=== PATIENT | male | born 1940 | race Caucasian/White ===

== ENCOUNTER 2021-09-29 13:05 | Inpatient (IN) ==
[2021-09-29 13:58] LABS: Basophils % 0.5 %; Eosinophils # 0.2 K/mcL (0.0-0.6); Eosinophils % 2.7 %; Hematocrit 34.9 % (37.5-50.1); Hemoglobin 11.6 g/dL (12.9-16.9); Immature Granulocytes % 0.3 % (0-4); Lymphocytes # 1.7 K/mcL (0.6-4.6); Lymphocytes % 23.2 %; Mean Corpuscular HGB Conc 33.2 g/dL (31.6-35.5); Mean Corpuscular Hemoglobin 31.4 pg (28.0-33.3); Mean Corpuscular Volume 94.6 fL (83.0-100.0); Mean Platelet Volume 9.1 fL (9.4-12.4); Monocytes # 0.6 K/mcL (0.0-1.3); Neutrophils # 4.8 K/mcL (1.6-8.9); Platelet Count 277 K/mcL (140-400); Red Blood Count 3.69 M/mcL (4.19-5.50); Red Cell Distribution Width 13.1 % (11.5-14.5); Segmented Neutrophils % 65.3 %; White Blood Count 7.3 K/mcL (4.3-11.1)
[2021-09-29 14:18] LABS: BUN/Creatinine Ratio 16 (6-26); Blood Urea Nitrogen 27 mg/dL (8-23); Calcium 8.9 mg/dL (8.6-10.3); Carbon Dioxide 26 mEq/L (23-29); Chloride 106 mEq/L (98-107); Glucose 135 mg/dL (70-105); Osmolality,Calculated 297 (280-300); Sodium 140 mEq/L (136-145); Troponin I < 0.03 ng/mL (< 0.04); eGFR For African Americans 49 (> 60); eGFR For Non-African Americans 40 (> 60)
[2021-09-29] MEDS ORDERED: *HR* Labetalol 20 MG/4 ML SYRINGE IVP PRN (17:03)
[2021-09-29] MEDS ORDERED: Perflutren Lipid Microsphere 1.3 ML in 0.9 % Sodium Chloride 8.7 ML IVP PRN (20:08)
[2021-09-29] MEDS ORDERED: Dextrose Gel 15 GM/37.5 ML TUBE PO PRN ×2 (21:59)
[2021-09-29] MEDS ORDERED: *HR* Dextrose 50 % in Water (Syg) 50 ML SYRINGE IVP PRN (21:59)
[2021-09-29] MEDS ORDERED: D5% in Water 1,000 ML IVC PRN (21:59)
[2021-09-29] MEDS: Metoprolol XL (24 HR) Succ 25 MG TAB.ER.24H PO SCH (23:00)
[2021-09-29] MEDS: Pregabalin 25 MG CAPSULE PO SCH (23:45)
[2021-09-30] MEDS: *HR* Heparin 5,000 UNIT/ML VIAL SQ SCH ×3 (05:15→21:01)
[2021-09-30 06:47] LABS: Hematocrit 31.7 % (37.5-50.1); Hemoglobin 10.8 g/dL (12.9-16.9); Mean Corpuscular HGB Conc 34.1 g/dL (31.6-35.5); Mean Corpuscular Volume 93.8 fL (83.0-100.0); Mean Platelet Volume 9.3 fL (9.4-12.4); Platelet Count 235 K/mcL (140-400); Red Blood Count 3.38 M/mcL (4.19-5.50); Red Cell Distribution Width 13.1 % (11.5-14.5); White Blood Count 7.3 K/mcL (4.3-11.1)
[2021-09-30 07:07] LABS: Albumin 3.9 g/dL (3.5-5.7); Albumin/Globulin Ratio 1.8 (1.1-2.2); Bilirubin,Total 0.7 mg/dL (0.3-1.0); Calcium 8.6 mg/dL (8.6-10.3); Chol/HDL Ratio 4.2 (0-4.9); Globulin 2.2 g/dL (2.4-3.5); Potassium 4.1 mEq/L (3.5-5.1); Total Protein 6.1 g/dL (6.4-8.9)
[2021-09-30 07:32] LABS: Estimated Average Glucose 148 mg/dl; Hemoglobin A1C 6.8 %
[2021-09-30] MEDS ORDERED: Gadolinium Contrast Agent (WT Based) IV PRN (08:19)
[2021-09-30] MEDS: Aspirin Enteric Coated 81 MG Tablet PO SCH (09:04)
[2021-09-30] MEDS: Valsartan 80 MG TABLET PO SCH (09:04)
[2021-09-30] MEDS: Pregabalin 25 MG CAPSULE PO SCH ×2 (09:04→21:01)
[2021-09-30] MEDS: Insulin LISPRO 300 UNITS/3 ML VIAL SUBQ SCH ×3 (09:04→16:31)
[2021-09-30] MEDS: hydroCHLOROthiazide 25 MG TABLET PO SCH (09:04)
[2021-09-30] MEDS: Metoprolol XL (24 HR) Succ 25 MG TAB.ER.24H PO SCH (20:58)
[2021-10-01] MEDS: *HR* Heparin 5,000 UNIT/ML VIAL SQ SCH (05:55)
[2021-10-01] MEDS: hydroCHLOROthiazide 25 MG TABLET PO SCH (09:22)
[2021-10-01] MEDS: Valsartan 80 MG TABLET PO SCH (09:22)
[2021-10-01] MEDS: Insulin LISPRO 300 UNITS/3 ML VIAL SUBQ SCH ×3 (09:22→16:51)
[2021-10-01] MEDS: Pregabalin 25 MG CAPSULE PO SCH ×2 (09:23→20:40)
[2021-10-01] MEDS: Aspirin Enteric Coated 81 MG Tablet PO SCH (09:23)
[2021-10-01] MEDS ORDERED: Perflutren Lipid Microsphere 1.3 ML in 0.9 % Sodium Chloride 8.7 ML IVP PRN (09:36)
[2021-10-01] MEDS ORDERED: *HR* Heparin 5,000 UNIT/ML VIAL IVP PRN ×2 (12:57)
[2021-10-01] MEDS ORDERED: *HR* Heparin 5,000 UNIT/ML VIAL IVP ONE (12:57)
[2021-10-01 13:16] LABS: Hematocrit 33.9 % (37.5-50.1); Hemoglobin 11.5 g/dL (12.9-16.9); Mean Corpuscular HGB Conc 33.9 g/dL (31.6-35.5); Mean Corpuscular Volume 94.4 fL (83.0-100.0); Mean Platelet Volume 8.8 fL (9.4-12.4); Platelet Count 254 K/mcL (140-400); Red Blood Count 3.59 M/mcL (4.19-5.50); Red Cell Distribution Width 12.8 % (11.5-14.5); White Blood Count 7.1 K/mcL (4.3-11.1)
[2021-10-01] MEDS: Heparin 25,000UNIT/250ML 1/2NS 25,000 UNIT/250 ML IV.SOLN IVC SCH (13:22)
[2021-10-01 13:23] LABS: Heparin anti-factor XA UFH < 0.04 IU/mL (0.30-0.70)
[2021-10-01 13:24] LABS: INR 1.3; Prothrombin Time 14.2 Seconds (9.4-12.1)
[2021-10-01] MEDS: Metoprolol XL (24 HR) Succ 25 MG TAB.ER.24H PO SCH (20:40)
[2021-10-02] MEDS: Insulin LISPRO 300 UNITS/3 ML VIAL SUBQ SCH ×3 (08:16→16:20)
[2021-10-02] MEDS: Pregabalin 25 MG CAPSULE PO SCH ×2 (08:16→20:53)
[2021-10-02] MEDS: Aspirin Enteric Coated 81 MG Tablet PO SCH (08:16)
[2021-10-02] MEDS: hydroCHLOROthiazide 25 MG TABLET PO SCH (08:16)
[2021-10-02] MEDS: Valsartan 80 MG TABLET PO SCH (08:17)
[2021-10-02] MEDS: Metoprolol XL (24 HR) Succ 25 MG TAB.ER.24H PO SCH (20:52)
[2021-10-02] MEDS: Heparin 25,000UNIT/250ML 1/2NS 25,000 UNIT/250 ML IV.SOLN IVC SCH (21:03)
[2021-10-03 04:13] LABS: Albumin 3.9 g/dL (3.5-5.7); Albumin/Globulin Ratio 1.5 (1.1-2.2); Bilirubin,Total 0.5 mg/dL (0.3-1.0); Globulin 2.6 g/dL (2.4-3.5); Potassium 4.2 mEq/L (3.5-5.1); Total Protein 6.5 g/dL (6.4-8.9)
[2021-10-03 06:00] LABS: Basophils % 0.4 %; Eosinophils # 0.3 K/mcL (0.0-0.6); Eosinophils % 4.3 %; Hematocrit 31.5 % (37.5-50.1); Hemoglobin 10.4 g/dL (12.9-16.9); Immature Granulocytes % 0.4 % (0-4); Lymphocytes # 1.7 K/mcL (0.6-4.6); Lymphocytes % 22.9 %; Mean Corpuscular Volume 96.9 fL (83.0-100.0); Mean Platelet Volume 9.5 fL (9.4-12.4); Monocytes # 0.7 K/mcL (0.0-1.3); Monocytes % 9.5 %; Neutrophils # 4.5 K/mcL (1.6-8.9); Platelet Count 225 K/mcL (140-400); Red Blood Count 3.25 M/mcL (4.19-5.50); Red Cell Distribution Width 12.9 % (11.5-14.5); Segmented Neutrophils % 62.5 %; White Blood Count 7.2 K/mcL (4.3-11.1)
[2021-10-03] MEDS: Insulin LISPRO 300 UNITS/3 ML VIAL SUBQ SCH ×3 (07:37→20:14)
[2021-10-03] MEDS: Aspirin Enteric Coated 81 MG Tablet PO SCH (07:41)
[2021-10-03] MEDS: hydroCHLOROthiazide 25 MG TABLET PO SCH (07:41)
[2021-10-03] MEDS: Pregabalin 25 MG CAPSULE PO SCH ×2 (07:41→20:47)
[2021-10-03] MEDS: Valsartan 80 MG TABLET PO SCH (07:41)
[2021-10-03] MEDS ORDERED: CeFAZolin 2,000 MG/120 ML BAG IVPB ONE ×2 (09:00→15:00)
[2021-10-03] MEDS ORDERED: *HR* Metoprolol 5 MG/5 ML VIAL IVP PRN (09:17)
[2021-10-03] MEDS: 0.9 % Sodium Chloride 1,000 ML IVC SCH ×2 (10:03→22:34)
[2021-10-03] MEDS: Heparin 25,000UNIT/250ML 1/2NS 25,000 UNIT/250 ML IV.SOLN IVC SCH (13:19)
[2021-10-03] MEDS ORDERED: Ondansetron 4 MG/2 ML VIAL ONE (13:22)
[2021-10-03] MEDS ORDERED: Lidocaine -MPF 2% 2 ML VIAL ONE ×2 (13:22→18:27)
[2021-10-03] MEDS ORDERED: *HR* Propofol 200 MG/20 ML VIAL IVP ONE (13:22)
[2021-10-03] MEDS ORDERED: *HR* Rocuronium Bromide 50 MG/5 ML VIAL ONE ×2 (13:22→16:31)
[2021-10-03] MEDS ORDERED: *HR* FentaNYL (PF) 100 MCG/2 ML VIAL ONE ×2 (13:22→17:23)
[2021-10-03] MEDS ORDERED: *HR* Phenylephrine 10 MG/ML VIAL ONE (14:42)
[2021-10-03 14:56] LABS: Sodium, Urine 93.1 mEq/L
[2021-10-03] MEDS ORDERED: Protamine Sulfate 50 MG/5 ML VIAL IVP ONE (15:16)
[2021-10-03] MEDS ORDERED: Heparin 1,000 UNITS/500 mL 500 ML ONE ×3 (15:16→18:08)
[2021-10-03] MEDS ORDERED: ceFAZolin 1,000 MG, Sodium Chloride IRRigation 1,000 ML IR ONE (15:25)
[2021-10-03] MEDS ORDERED: EPHEDrine 50 MG/ML VIAL ONE (16:18)
[2021-10-03] MEDS ORDERED: *HR* Heparin 5,000 UNIT/ML VIAL ONE (17:12)
[2021-10-03] MEDS ORDERED: *HR* Vasopressin 20 UNIT/ML VIAL ONE (18:15)
[2021-10-03] MEDS ORDERED: Sugammadex Sodium 200 MG/2 ML VIAL IV ONE (18:27)
[2021-10-03] MEDS ORDERED: Naloxone 0.4 MG/ML INJ ONE ×2 (18:50)
[2021-10-03] MEDS: Metoprolol XL (24 HR) Succ 25 MG TAB.ER.24H PO SCH (20:47)
[2021-10-04] MEDS: Aspirin Enteric Coated 81 MG Tablet PO SCH (08:03)
[2021-10-04] MEDS: Pregabalin 25 MG CAPSULE PO SCH (08:04)
[2021-10-04] MEDS: Insulin LISPRO 300 UNITS/3 ML VIAL SUBQ SCH (08:04)
[2021-10-04] MEDS ORDERED: Acetaminophen 325 MG TABLET PO PRN (08:23)
[2021-10-04] MEDS ORDERED: D5% in Water 1,000 ML IVC PRN (08:23)
[2021-10-04] MEDS ORDERED: Naloxone 0.4 MG/ML INJ IVP PRN (08:23)
[2021-10-04] MEDS ORDERED: 0.9 % Sodium Chloride 1,000 ML IVC SCH (08:23)
[2021-10-04] MEDS ORDERED: *HR* HYDROcodone/Acet 5/325 mg TABLET PO PRN (08:23)
[2021-10-04] MEDS ORDERED: Perflutren Lipid Microsphere 1.3 ML in 0.9 % Sodium Chloride 8.7 ML IVP PRN (08:23)
[2021-10-04] MEDS ORDERED: Dextrose Gel 15 GM/37.5 ML TUBE PO PRN ×2 (08:23)
[2021-10-04] MEDS ORDERED: *HR* Metoprolol 5 MG/5 ML VIAL IVP PRN (08:23)
[2021-10-04] MEDS ORDERED: *HR* Labetalol 20 MG/4 ML SYRINGE IVP PRN (08:23)
[2021-10-04] MEDS ORDERED: CeFAZolin 2 GM/120 ML BAG IVPB SCH (08:23)
[2021-10-04] MEDS ORDERED: *HR* Dextrose 50 % in Water (Syg) 50 ML SYRINGE IVP PRN (08:23)
[2021-10-04] MEDS ORDERED: CeFAZolin 2,000 MG/120 ML BAG IVPB ONE (08:23)
[2021-10-04 08:50] LABS: Hematocrit 27.3 % (37.5-50.1); Hemoglobin 9.1 g/dL (12.9-16.9); Mean Corpuscular HGB Conc 33.3 g/dL (31.6-35.5); Mean Corpuscular Hemoglobin 31.6 pg (28.0-33.3); Mean Corpuscular Volume 94.8 fL (83.0-100.0); Platelet Count 206 K/mcL (140-400); Red Blood Count 2.88 M/mcL (4.19-5.50); White Blood Count 9.3 K/mcL (4.3-11.1)
[2021-10-04] MEDS ORDERED: Valsartan 80 MG TABLET PO SCH (09:00)
[2021-10-04] MEDS ORDERED: Aspirin Enteric Coated 81 MG Tablet PO SCH (09:00)
[2021-10-04] MEDS ORDERED: Pregabalin 25 MG CAPSULE PO SCH (09:00)
[2021-10-04 09:11] LABS: Calcium 8.1 mg/dL (8.6-10.3); Potassium 4.9 mEq/L (3.5-5.1)
[2021-10-04 09:22] LABS: Basophils % 0.1 %; Immature Granulocytes % 0.4 % (0-4); Lymphocytes # 0.8 K/mcL (0.6-4.6); Lymphocytes % 8.4 %; Monocytes # 0.5 K/mcL (0.0-1.3); Monocytes % 5.8 %; Neutrophils # 7.9 K/mcL (1.6-8.9); Segmented Neutrophils % 85.3 %
[2021-10-04 11:13] VITALS: TEMP 97.9
[2021-10-04] MEDS ORDERED: Insulin LISPRO 300 UNITS/3 ML VIAL SUBQ SCH (11:30)
[2021-10-04 13:54] VITALS: BP 134/66; PULSE 58; O2SAT 97
[2021-10-04] MEDS ORDERED: Metoprolol XL (24 HR) Succ 25 MG TAB.ER.24H PO SCH (21:00)
== END 2021-10-04 17:15 | disposition home or self-care (01) | DRG 38 ==
LOC: EMEROOARM 13:05 → 3BNU 13:05 → SUATTDRO 18:58 → 3BNU 19:25 → SUATTDRO 10-03 11:40 → 2NNU 10-03 20:13
PROVIDERS: ADMIT Student in an Organized Health Care Education/Training Program; ATTEND Internal Medicine